=== PATIENT | female | born 1955 | race African-American/Black ===

== ENCOUNTER 2017-03-27 20:31 | Emergency (ER) | payer MEDICAID ==
[~2017-03-27] VITALS: Ht 172.7 cm; Wt 102.0 kg
[2017-03-27 23:54] VITALS: BP 125/75
== END 2017-03-28 02:47 | disposition home or self-care (01) ==
LOC: ER 20:31
DX: S09.90XA Unspecified injury of head, initial encounter (principal); M25.531 Pain in right wrist; I10 Essential (primary) hypertension; E11.9 Type 2 diabetes mellitus without complications; Z98.890 Other specified postprocedural states; W01.198A Fall on same level from slipping, tripping and stumbling with subsequent striking against other object, initial encounter; Y93.89 Activity, other specified; Y92.89 Other specified places as the place of occurrence of the external cause; Y99.8 Other external cause status
CPT/HCPCS: 70450; 73110; 93005; 99284; Z7610

== ENCOUNTER 2019-12-15 10:00 | Emergency (ER) | payer MEDICAID ==
[~2019-12-15] VITALS: Ht 172.7 cm; Wt 107.0 kg
[2019-12-15] MEDS ORDERED: AMLO10TA80 PO (10:43)
[2019-12-15] MEDS ORDERED: METF-416 PO (10:43)
[2019-12-15] MEDS ORDERED: SIMV-46 PO (10:43)
[2019-12-15] MEDS ORDERED: GLIM4TAB36 PO (10:43)
[2019-12-15] MEDS ORDERED: BENA1TAB21 PO (10:43)
[2019-12-15] MEDS ORDERED: KETOROLAC 30MG/ML VIAL IM ONE (11:30)
[2019-12-15] MEDS ORDERED: CYCLOBENZAPRINE 10MG TABLET PO ONE (11:30)
[2019-12-15 11:35] VITALS: BP 158/59
[2019-12-15] MEDS ORDERED: HYDROCODONE/ACETAMINOPHEN 5/325MG TABLET PO ONE (12:30)
== END 2019-12-15 12:33 | disposition home or self-care (01) ==
LOC: ER 10:00
DX: M54.41 Lumbago with sciatica, right side (principal); I10 Essential (primary) hypertension; E11.9 Type 2 diabetes mellitus without complications
CPT/HCPCS: 96372; 99283; J1885

== ENCOUNTER 2021-07-03 12:14 | Emergency (ER) | payer MEDICAID ==
[~2021-07-03] VITALS: Ht 170.2 cm; Wt 104.0 kg
[~2021-07-03 12:14] MED LIST: AMLO10TA80 PO; BENA1TAB21 PO; GLIM4TAB36 PO; METF-416 PO; SIMV-46 PO
[2021-07-03] MEDS ORDERED: IBUPROFEN 800MG TABLET PO ONE (12:45)
[2021-07-03] MEDS ORDERED: IBUP-2030 MT (17:47)
[2021-07-03 18:16] VITALS: BP 136/64
== END 2021-07-03 18:17 | disposition home or self-care (01) ==
LOC: ER 12:14
DX: S83.8X2A Sprain of other specified parts of left knee, initial encounter (principal); E11.9 Type 2 diabetes mellitus without complications; I10 Essential (primary) hypertension; Z90.710 Acquired absence of both cervix and uterus; Z79.84 Long term (current) use of oral hypoglycemic drugs; X58.XXXA Exposure to other specified factors, initial encounter; Y93.89 Activity, other specified; Y92.018 Other place in single-family (private) house as the place of occurrence of the external cause
CPT/HCPCS: 73562; 73700; 93971; 99285; L1830

== ENCOUNTER 2021-11-29 15:52 | Emergency (ER) | payer MEDICAID ==
[~2021-11-29] VITALS: Ht 172.7 cm; Wt 100.0 kg
[~2021-11-29 15:52] MED LIST changes: +IBUP-2030 MT
[2021-11-29] MEDS ORDERED: IOHEXOL-350 100 ML BOTTLE ONE (17:07)
[2021-11-29 18:22] VITALS: BP 162/67
[2021-11-29] MEDS ORDERED: LORAZEPAM 2MG/ML CPJ IV PRN (23:15)
[2021-12-05] MEDS ORDERED: ASPI-1406 MT (21:05)
== END 2021-11-29 18:00 | disposition admitted as inpatient to this hospital (09) ==
LOC: ER 15:52
DX: R51.9 Headache, unspecified (principal)
CPT/HCPCS: 96374; 99283; J2060; Q9967

== ENCOUNTER 2022-01-19 13:13 | Emergency (ER) | payer MEDICAID, OTHER ==
[~2022-01-19] VITALS: Ht 172.7 cm; Wt 100.0 kg
[~2022-01-19 13:13] MED LIST changes: +ASPI-1406 MT
[2022-01-19] MEDS ORDERED: HYDROCODONE/ACETAMINOPHEN 5/325MG TABLET PO ONE (13:45)
[2022-01-19 16:16] VITALS: BP 127/84
== END 2022-01-19 16:17 | disposition home or self-care (01) ==
LOC: ER 13:13
DX: M79.18 Myalgia, other site (principal); W19.XXXA Unspecified fall, initial encounter; Y93.89 Activity, other specified; Y92.89 Other specified places as the place of occurrence of the external cause; Y99.8 Other external cause status; E11.9 Type 2 diabetes mellitus without complications; I10 Essential (primary) hypertension; Z86.73 Personal history of transient ischemic attack (TIA), and cerebral infarction without residual deficits; Z90.710 Acquired absence of both cervix and uterus; Z79.899 Other long term (current) drug therapy
CPT/HCPCS: 73060; 73552; 99284